=== PATIENT | male | born 2000 | race Caucasian/White ===

== ENCOUNTER 2019-08-02 16:26 | Emergency (ER) | payer MEDICAID, SELFPAY ==
[2019-08-02 16:26] VITALS: BP 122/74; PULSE 86; RESP 15; TEMP 36.6; O2SAT 99; BMI 23.6
--- NOTE | 2019-08-02 16:45 | ED.DCSUM_ITS ---
- ER Visit Summary Date of Service: 08/02/19 Chief Complaint: Paranoia, hallucinations, suicidal ideation History of Present Illness: The patient is a 19 M presenting with paranoid behavior, hallucinations, suicidal ideation. Patient's family states that this has been ongoing for months but worsened recently. He was at [facility] in March for similar complaints. At that time his symptoms were thought to be secondary to mushroom use. He denies drug use at this time. He continues to hear voices. He feels that everyone is out to get him. He went to work today and they told him he was early. He left the job. He feels like people are lying to him. Mom states that he has had violent outbursts. He states he is unable to sleep. He is tearful on arrival. He admits to suicidal ideation. Denies plan. No history of past suicide attempt. Physical Examination: Vitals are stable. Patient is afebrile. Alert no acute distress. HEENT exam is unremarkable. Neck is supple. Lungs are clear and equal bilaterally. Heart is regular rate and rhythm. Abdomen is soft nontender nondistended. Extremities are unremarkable. Skin is warm and dry. No focal neurologic deficit. Tearful, depressed affect Remainder of exam is unremarkable. Emergency Department Course and Treatment: CBC, chemistries unremarkable. Tox positive for THC, alcohol negative. Patient was seen by social work in the ED. [place] slip was completed. He will be transferred for psychiatric evaluation. Disposition: Transfer Impression: Suicidal ideation, auditory hallucinations, paranoid behavior This note was generated with [employer] dictation software. It may contain incorrect words, spelling, and punctuation that were not noted in review of the chart prior to signing ED Disposition - Plan for ED Patient: Referrals: Reinier Lundy MD [NON-STAFF] -
--- NOTE | 2019-08-02 16:48 | ED.RN ---
while in triage wound were noticed on left hand. when asked pt stated he punched and window. he was then asked if that was done in an attempt to harm himself. he stated no that he was trying to relieve stress. during triage he was asked if his level of stress was higher than normal he stated yes. he began to speak about how people at work were out to get him. lying to him and not giving him good directions. mother states that this has been an issue in the past. pt just started this new job. martha alvarez rn [id number]
[2019-08-02 17:11] LABS: Absolute Lymphocyte Count 2.18 X10^3/uL (0.83-4.51); Absolute Neutrophil Count 6.4 X10^3/uL (2.0-7.7); Basophil# 0.07 X10^3/uL; Basophil% 0.7 % (0-1); Eosinophil# 0.05 X10^3/uL; Eosinophils% 0.5 % (0-5); Hematocrit 45.3 % (40-54); Hemoglobin 16.3 g/dL (13.0-16.5); Lymphocyte # 2.18 X10^3/ul (4.0); Mean Corpuscular Hgb 29.3 pg (27.0-32.0); Mean Corpuscular Volume 81.3 fL (80-94); Mean Platelet Vol. 9.1 fl (6.2-12.0); Monocyte# 0.74 X10^3/uL; Monocyte% 7.8 % (0-10); NRBC Flagged by Analyzer 0 % (0-5); Neutrophil # 6.38 X10^3/uL (2.7-7.7); Neutrophil % 67.6 % (47-70); Platelet Count 351 K/mm3 (150-450); RBC Distribution Width CV 12.5 % (11.6-14.6); RBC Distribution Width SD 36.8 fl (35.1-43.9); Red Blood Count 5.57 M/mm3 (4.6-6.2); White Blood Count 9.5 K/mm3 (4.4-11.0)
[2019-08-02 17:22] LABS: Anion Gap 7 (5-15); BUN 17 mg/dL (7-18); BUN/Creat Ratio 15.2 RATIO (10-20); Calcium,Total 9.8 mg/dL (8.5-10.1); Chloride 106 mmol/L (98-107); Creatinine, Serum 1.12 mg/dL (0.70-1.30); EST Glomerular Filtration Rate 88 mL/min (>60); Est Glom Filt Rate - Afr Amer 106 mL/min (>60); Estimated Creatinine Clearance 97.54 ml/min; Glucose 80 mg/dL (74-106); Potassium 3.6 mmol/L (3.5-5.1); Sodium Level 140 mmol/L (136-145)
[2019-08-02 17:43] LABS: Alcohol, Blood (Medical)-Serum < 3.0 mg/dL
--- NOTE | 2019-08-02 17:52 | CM.ED ---
SOCIAL WORK INFORMANT: DR. ARAUJO REASON FOR REFERRAL: SUICIDAL IDEATION/MENTAL HEALTH CHIEF COMPLIANT: PATIENT PRESENTS TO THE EMERGENCY DEPARTMENT WITH PARENTS. PATIENT HAVING AUDITORY AND VISUAL HALLUCINATIONS. PATIENT ADMITS TO SUICIDAL IDEATION WITH NO PLAN. PARENTS REPORT PRIOR HOSPITALIZATION IN MARCH AFTER OVERDOSE ON MUSHROOMS AND METH AND STATE PATIENT HAS NOT BEEN THE SAME SINCE HOSPITALIZATION. MARITAL STATUS: SINGLE LIVING SITUATION: PARENTS REPORT PATIENT STAYS AT MOTHER OR FATHER'S HOUSE. SUPPORT/RESOURCES: PARENTS EDUCATION/EMPLOYMENT HISTORY: HIGH SCHOOL GRADUATE. PATIENT CURRENTLY EMPLOYED AT [employer]. PARENTS REPORT PATIENT STARTED JOB YESTERDAY. MENTAL HEALTH TREATMENT/HISTORY: ANXIETY-NOT TREATED. FATHER REPORTS AFTER HOSPITALIZATION IN MARCH PATIENT WAS STARTED ON PROZAC AND IT MADE HIM WORSE. I TOOK HIM OFF OF IT AFTER 4 DAYS. PATIENT STATES HAD NIGHT TERRORS AT A YOUNG AGE AND HAS BEEN HAVING NIGHTMARES RECENTLY. PATIENT WITH FAMILY HISTORY OF MENTAL HEALTH. PATIENT'S UNCLE ON MOTHER'S SIDE AND GRANDFATHER ON FATHER'S SIDE SUFFER FROM PARANOID SCHIZOPHRENIA. PATIENT DENIES ANY HISTORY OF PHYSICAL, EMOTIONAL OR SEXUAL ABUSE. SUBSTANCE ABUSE HISTORY: PATIENT WITH HISTORY OF METH, MUSHROOMS, AND MARIJUANA USE. PATIENT WAS HOSPITALIZED AFTER OVERDOSE ON MUSHROOMS AND METH IN MARCH 2019. PATIENT REPORTS OCCASIONAL MARIJUANA USE. MENTAL STATUS EXAM: ORIENTATION: PATIENT ALERT AND ORIENTED MEMORY: FAIR APPEARANCE/GENERAL BEHAVIOR: DISHEVELED, AGITATED MOOD/AFFECT: DEPRESSED, ANXIOUS, ANGRY, TEARFUL, SCARED COMMUNICATION PATTERN: RESPONDS TO QUESTIONS THOUGHT PROCESS: HALLUCINATIONS A/V, DELUSIONS, PARANOID JUDGEMENT: POOR RISK TO SELF/OTHERS: SUICIDAL: PATIENT ADMITS TO SUICIDAL IDEATION SOMETIMES. PATIENT DENIES PLAN AT THIS TIME. PARENTS REPORT NO PREVIOUS HISTORY. HOMICIDAL: PATIENT DENIES ANY HOMICIDAL IDEATION. VIOLENCE: PARENTS REPORT PATIENT HAS BEEN HAVING VIOLENT OUTBURSTS. PATIENT STATES I WOULD NEVER HURT ANYONE. MOTHER STATES PATIENT WILL PUNCH RAMAN OR THROW THINGS AT THE WALL. ASSESSMENT: MET WITH PATIENT AND PARENTS IN ROOM. PATIENT GAVE PERMISSION FOR THIS WORKER TO SPEAK OPENLY WITH PARENTS PRESENT. MOTHER AND FATHER CONCERNED PATIENT MAY BE PARANOID SCHIZOPHRENIC DUE TO FAMILY HISTORY. FATHER AND MOTHER STATE PATIENT OVERDOSED ON MUSHROOMS AND METH OVER THE SUMMER AND HAS NOT BEEN THE SAME SINCE. PATIENT WITH PARANOID DELUSIONS, AUDITORY AND VISUAL HALLUCINATIONS, NIGHTMARES, AND VIOLENT OUTBURSTS. PATIENT TEARFUL THROUGHOUT ASSESSMENT STATING I JUST WANT THEM TO STOP WHEN TALKING ABOUT THE VOICES. PATIENT FEELS EVERYONE IS OUT TO GET HIM. PATIENT ADMITS TO SUICIDAL IDEATION. PATIENT DENIES PLAN. COLLABORATION WITH DR. ARAUJO. RECOMMENDING INPATIENT PSYCH HOSPITALIZATION. PATIENT WITH 1:[address] PARENTS REMAIN AT BEDSIDE. PATIENT AND FAMILY AWARE OF REFERRAL FOR PLACEMENT. INTERVENTIONS: SOCIAL SERVICE ASSESSMENT SUICIDE RISK ASSESSMENT COMPLETED REFERRAL FOR INPATIENT PSYCH HOSPITALIZATION Rajiv BURK MSW, POULTICE MACHINE OPERATOR.
[2019-08-02] MEDS: LORazepam 1 MG Tablet PO (17:59)
[2019-08-02 18:00] VITALS: RESP 16
--- NOTE | 2019-08-02 18:41 | CM.ED ---
SOCIAL WORK REFERRAL CALLED AND FAXED TO MARKELL AT [facility]. MARKELL TO REVIEW REFERRAL AND GET BACK TO THIS WORKER. WILL FAX TOX SCREEN ONCE RECEIVED. Rajiv BURK MSW, VICE PRESIDENT AND PORTFOLIO MANAGER.
[2019-08-02 19:11] LABS: Amphetamine Urine VISTA NEGATIVE (<1000 ng/mL); Barbiturate Urine VISTA NEGATIVE (< 200 ng/mL); Benzodiazepine Urine VISTA NEGATIVE (< 200 ng/mL); Cocaine Urine VISTA NEGATIVE (< 300 ng/mL); Ecstacy Urine VISTA NEGATIVE (< 500 ng/mL); Methadone Urine VISTA NEGATIVE (< 300 ng/mL); PCP Urine VISTA NEGATIVE (< 25 ng/mL); THC Urine VISTA POSITIVE (< 50 ng/mL); Vista UDS pH Range 6
[2019-08-02 20:15] VITALS: BP 102/72; PULSE 90; RESP 16; O2SAT 97
--- NOTE | 2019-08-02 20:25 | CM.ED ---
SOCIAL WORK CALL TO ABHIJE[facility] POON TO CHECK ON STATUS OF REFERRAL. SPOKE WITH BOO, WHO REPORTS IS REVIEWING REFERRAL. WILL GET BACK TO THIS WORKER. Rajiv BURK, CLINICAL INVESTIGATOR, NURSING RESIDENT.
--- NOTE | 2019-08-02 21:40 | CM.ED ---
SOCIAL WORK CALL TO ABHIJE[facility] POON TO DISCUSS REFERRAL. WORKER STATES DEALING WITH PATIENTS AND HAVE 8 OTHER REFERRALS. WILL GET BACK TO THIS WORKER ONCE REVIEWED. STAFF DENZEL. Rajiv BURK, MANUFACTURING ENGINEER, ALL SOURCE ANALYST
--- NOTE | 2019-08-02 22:01 | CM.ED ---
SOCIAL WORK REFERRAL CALLED AND FAXED TO JUSTINE AT [facility]. JUSTINE TO REVIEW REFERRAL AND GET BACK TO THIS WORKER. Rajiv BURK, NAPRAPATH, [employer] FIELD TECHNICIAN.
--- NOTE | 2019-08-02 22:59 | CM.ED ---
SOCIAL WORK CALL FROM JUSTINE WITH [facility]. DR. CHAPMAN HAS ACCEPTED PATIENT TO THE [facility]. NURSE TO CALL REPORT TO [facility]. COPY OF PINK SLIP FAXED PER REQUEST. CUSTODIAL OFFICER, [place] TO SET UP TRANSPORT ONCE REPORT CALLED. STAFF UPDATED. Rajiv BURK MSW, GREEN CHAIN OFFBEARER.
[2019-08-02 23:12] VITALS: RESP 14
--- NOTE | 2019-08-02 23:12 | ED.RN ---
THIS NURSE CALLED KATE, PT'S MOTHER, AT [phone] AND INFORMED HER THAT PT WAS ACCEPTED AT [facility] FOR PSYCHIATRY. WILL INFORM MOTHER IF PT IS TRANSPORTED THIS EVENING.
--- NOTE | 2019-08-02 23:22 | ED.RN ---
ATTEMPTED TO CALL REPORT TO [facility] AT , CALL WAS TRANSFERRED TO UNIT [facility] AND NO ANSWER.
[2019-08-03 01:28] VITALS: RESP 14
[2019-08-03 04:11] VITALS: BP 113/58; PULSE 63; RESP 14; TEMP 36.8; O2SAT 99
--- NOTE | 2019-08-03 04:27 | ED.RN ---
Dr. Agudelo notified of lactic acid 24.1
[2019-08-03] MEDS: Ibuprofen 200 MG Tablet 400 MG PO (04:34)
[2019-08-03 06:00] VITALS: RESP 16
--- NOTE | 2019-08-03 06:22 | ED.RN ---
attempted to call report to [facility]. no answer.
== END 2019-08-03 07:48 ==
PROVIDERS: Emergency Provider Emergency Medicine
DX: F22 Delusional disorders (principal); R45.851 Suicidal ideations; Z72.0 Tobacco use
CPT/HCPCS: 36415; 80048; 80307; 80320; 85025; 99285; G0480

== ENCOUNTER 2019-08-09 14:29 | Emergency (ER) | payer MEDICAID, SELFPAY ==
[2019-08-09 14:30] VITALS: BP 139/89; PULSE 76; RESP 16; TEMP 36.6; O2SAT 100; BMI 24.7
--- NOTE | 2019-08-09 14:37 | CM.ED ---
SOCIAL WORK STEPHAN FROM [facility] HERE. PATIENT SENT IN BY [facility] AND WILL REQUIRE INPATIENT HOSPITALIZATION. [facility] TO COMPLETE PLACEMENT. Rajiv BURK, FITTING ROOM CHECKER, FELT MACHINE MECHANIC.
[2019-08-09 15:43] LABS: Absolute Lymphocyte Count 1.85 X10^3/uL (0.83-4.51); Absolute Neutrophil Count 7.2 X10^3/uL (2.0-7.7); Basophil# 0.05 X10^3/uL; Basophil% 0.5 % (0-1); Eosinophil# 0.13 X10^3/uL; Eosinophils% 1.3 % (0-5); Hematocrit 41.5 % (40-54); Hemoglobin 14.6 g/dL (13.0-16.5); Lymphocyte # 1.85 X10^3/ul (4.0); Lymphocyte % 18.6 % (19-41); Mean Corp Hgb Conc 35.2 g/dL (32-36); Mean Corpuscular Hgb 29.2 pg (27.0-32.0); Mean Platelet Vol. 9.1 fl (6.2-12.0); NRBC Flagged by Analyzer 0 % (0-5); Neutrophil # 7.17 X10^3/uL (2.7-7.7); Neutrophil % 72.3 % (47-70); Platelet Count 299 K/mm3 (150-450); RBC Distribution Width CV 12.8 % (11.6-14.6); RBC Distribution Width SD 38.3 fl (35.1-43.9); White Blood Count 9.9 K/mm3 (4.4-11.0)
--- NOTE | 2019-08-09 15:43 | ED.DCSUM_ITS ---
History of Present Illness Chief Complaint: Mental Health Narrative: Patient presenting for evaluation for psychiatric work-up. Patient was recently admitted and discharged from [facility] for psychiatry due to suicidal ideation. He was started on Abilify and was discharged 5 days ago. Patient apparently was following up today with the in town psychiatrist, and was informing them that he is still having persistent suicidal ideations. He states that he would want to , and plans to jump out of his bedroom window headfirst. He states that he is hearing voices that consist of women screaming. He reports that he feels hopeless and feels that he will never get better. He divulges all of this to the counselor, but actually does not divulge any of this to me. He denies any somatic complaints at this time. Past Medical History - Allergies and Home Meds Allergies/Adverse Reactions: Allergies No Known Allergies Allergy (Verified 08/09/19 14:35) Primary Care Physician: Care Physician,No Primary [Primary Care Provider] - Past Medical History: - - Prior suicidal ideation Smoking Status: Current every day smoker Review of Systems All systems negative except as indicated General: Denies: Chills, Fever, Sweats Eyes: Denies: Visual changes - bilaterally, Diplopia ENT: Denies: Rhinorrhea, Sore throat Cardiovascular: Denies: Chest pain, Palpitations Respiratory: Denies: Dyspnea, Cough, Dyspnea on exertion Gastrointestinal: Denies: Abdominal pain, Nausea, Vomiting, Diarrhea, Melena, Hematochezia Genitourinary: Denies: Dysuria, Hematuria, Frequency Musculoskeletal: Denies: Back pain, Extremity Pain Skin: Denies: Rash, Wounds Neurological: Denies: Headache, Weakness, Numbness Psych: Reports: Depression, Suicidal thoughts, Suicidal ideations Endocrine: Denies: Polyuria, Polydipsia Hematologic: Denies: Easy bruising, Easy bleeding Allergy: Denies: Swelling of the mouth Physical Exam Vital Signs/Narrative: Vital Signs Temp Pulse Resp BP Pulse Ox 08/09/19 14:30 97.8 F 76 16 139/89 H 100 Inital Vital Signs reviewed: Yes General: Well nourished, Well developed Head: Normocephalic, Atraumatic Eyes: Perrl, EOMI ENT: Moist mucous membranes, No rhinorrhea Neck: Supple, Nontender Cardiovascular: Regular rate, Regular rhythm, No murmurs Respiratory: No distress, CTA bilaterally, Chest nontender Abdomen: Soft, Nontender, Nondistended, Normal bowel sounds Back: Nontender, Normal Inspection Extremities: Nontender, No Edema Skin: Normal color, No rash Neurological: Alert, Oriented x3, Cranial nerves II-XII grossly intact, Normal Strength, Normal Sensation Psych: Restricted Affect, Poverty of Speech Diagnostic/Tx/Re-eval Patient presented for psych eval. Screening tests were negative he was medically cleared by myself for evaluation by mental health. Mental health did decide that they felt patient would benefit from placement. Patient was accepted in transfer to [facility] Disposition: Transfer ED Disposition - Plan for ED Patient: Disposition: Psychiatric Hospital or Unit Diagnosis: Suicidal ideation
[2019-08-09 15:51] LABS: Anion Gap 6 (5-15); BUN 13 mg/dL (7-18); BUN/Creat Ratio 12.9 RATIO (10-20); Calcium,Total 9.5 mg/dL (8.5-10.1); Chloride 107 mmol/L (98-107); Creatinine, Serum 1.01 mg/dL (0.70-1.30); EST Glomerular Filtration Rate 99 mL/min (>60); Est Glom Filt Rate - Afr Amer 120 mL/min (>60); Glucose 91 mg/dL (74-106); Potassium 3.6 mmol/L (3.5-5.1); Sodium Level 141 mmol/L (136-145)
[2019-08-09 16:07] LABS: Alcohol, Blood (Medical)-Serum < 3.0 mg/dL
[2019-08-09 17:00] VITALS: RESP 14
[2019-08-09 17:12] LABS: Amphetamine Urine VISTA NEGATIVE (<1000 ng/mL); Barbiturate Urine VISTA NEGATIVE (< 200 ng/mL); Benzodiazepine Urine VISTA NEGATIVE (< 200 ng/mL); Cocaine Urine VISTA NEGATIVE (< 300 ng/mL); Ecstacy Urine VISTA NEGATIVE (< 500 ng/mL); Methadone Urine VISTA NEGATIVE (< 300 ng/mL); PCP Urine VISTA NEGATIVE (< 25 ng/mL); THC Urine VISTA NEGATIVE (< 50 ng/mL); Vista UDS pH Range 6
[2019-08-09 19:57] VITALS: RESP 16
[2019-08-09 21:00] VITALS: BP 112/60; PULSE 76; RESP 16; O2SAT 96
[2019-08-09 21:29] VITALS: BP 112/60; PULSE 76; RESP 16; O2SAT 96
== END 2019-08-09 21:36 ==
PROVIDERS: Emergency Provider Emergency Medicine
DX: R45.851 Suicidal ideations (principal); F17.200 Nicotine dependence, unspecified, uncomplicated
CPT/HCPCS: 80048; 80307; 80320; 85025; 99284; G0480

== ENCOUNTER 2020-07-07 15:42 | Emergency (ER) | payer MEDICAID, SELFPAY ==
[2020-07-07 15:43] VITALS: BP 132/68; PULSE 115; RESP 18; TEMP 36.3; O2SAT 97; BMI 27.3
--- NOTE | 2020-07-07 15:52 | ED.RN ---
TINGLING IN HANDS, SHAKING
--- NOTE | 2020-07-07 15:59 | EKG12_ITS ---
Test Reason : ALLERGIC REACTION Blood Pressure : / mmHG Vent. Rate : 085 BPM Atrial Rate : 085 BPM P-R Int : 116 ms QRS Dur : 080 ms QT Int : 364 ms P-R-T Axes : 066 063 045 degrees QTc Int : 433 ms Normal sinus rhythm Normal ECG Confirmed by DELLA JONES, NATALIE ([id number]), editorial specialist COLEMAN FLORENTINO ([id number]) on 07/10/2020 10:23:07 AM Referred By: Confirmed By:NATALIE HULL MD
--- NOTE | 2020-07-07 16:04 | ED.VISSUMM ---
- ER Visit Summary Date of Service: 07/07/20 Chief Complaint: Tingling bilateral hands History of Present Illness: The patient is a 20 M presenting with tingling to both his hands which started yesterday. Patient states that he does not feel right. He was diagnosed with schizophrenia in October. At that time he was taking Invega, doxepin, Lexapro. Mom states he stopped taking his medications after approximately 1 month because he felt improved. At that time Covid was starting and he did not follow-up. She states over the past month he has agreed to go back to the psychiatrist and was restarted on his medications. He had Invega injection x2 since June 25. He has restarted doxepin and Lexapro which he previously was taking. He states he has tingling in both hands. He feels anxious and paranoid. He has auditory hallucinations. This morning he thought that his tongue might be swollen but this has resolved. He complains of lower abdominal pain. He denies nausea or vomiting. He has diarrhea. Denies fever or cough. Denies other complaints. Physical Examination: Vitals are stable. Patient is afebrile. Alert no acute distress. HEENT exam is unremarkable. No tongue swelling. No pharyngeal edema Neck is supple. No meningismus Lungs are clear and equal bilaterally. Heart is regular rate and tachycardic Abdomen is soft nontender nondistended. No guarding or rebound Extremities are unremarkable. Skin is warm and dry. No rash No focal neurologic deficit. Anxious, paranoid Remainder of exam is unremarkable. Emergency Department Course and Treatment: EKG is sinus rhythm rate of 85 with no acute ischemic changes. CBC, chemistries unremarkable. Urinalysis unremarkable. Tox positive for cannabinoids. Alcohol negative. Covid is pending. Patient was given Ativan and Tylenol. Symptoms have improved. Discussed with the counseling center who evaluated the patient in the ED. he is not suicidal or homicidal. He feels safe at home. Mom is in agreement. Counseling center and family are agreeable with discharge home and close follow-up with his psychiatrist. Advised signs and symptoms for which to return to the ED. Disposition: Discharge home Impression: Anxiety, history of schizophrenia This note was generated with [employer] software. It may contain incorrect words, spelling, and punctuation that were not noted in review of the chart prior to signing ED Disposition - Plan for ED Patient: Disposition: Home or Assisted Living Instructions: ED Schizophrenia General Referrals: Counseling,Center [GROUP OF PHYSICIANS] -
[2020-07-07] MEDS: LORazepam 1 MG Tablet PO (16:14)
[2020-07-07] MEDS: Acetaminophen 500 MG Tablet 1000 MG PO (16:15)
[2020-07-07 16:16] LABS: Bacteria 0 SEEN /hpf (None Seen); Mucous, Urine 0 SEEN /hpf (<or=2+); Red Blood Cells-Urine 0 SEEN /hpf (0-5); Squamous Epithelial Cells - UA 0 SEEN /hpf (0-5)
[2020-07-07 16:19] LABS: Color, Urine Yellow (Yellow); Glucose, Dipstick Normal (Normal); Ketone-Dipstick Negative (Negative); Leukocyte Esterase-Dipstick Negative /ul (Negative); Nitrite-Dipstick Negative (Negative); Occult Blood-Urine Negative /ul (Negative); Protein-Dipstick Negative (Negative); Urine Bilirubin Dipstick Negative (Negative); Urine Clarity Clear (Clear); Urine Urobilinogen Normal (Normal)
[2020-07-07 16:26] LABS: Absolute Lymphocyte Count 1.85 X10^3/uL (0.83-4.51); Absolute Neutrophil Count 5.2 X10^3/uL (2.0-7.7); Basophil# 0.04 X10^3/uL; Basophil% 0.5 % (0-1); Eosinophil# 0.16 X10^3/uL; Hematocrit 42.9 % (40-54); Lymphocyte # 1.85 X10^3/ul (4.0); Lymphocyte % 23.6 % (19-41); Mean Corpuscular Hgb 28.9 pg (27.0-32.0); Mean Corpuscular Volume 82.7 fL (80-94); Mean Platelet Vol. 9.1 fl (6.2-12.0); Monocyte# 0.54 X10^3/uL; Monocyte% 6.9 % (0-10); NRBC Flagged by Analyzer 0 % (0-5); Neutrophil # 5.22 X10^3/uL (2.7-7.7); Neutrophil % 66.5 % (47-70); Platelet Count 329 K/mm3 (150-450); RBC Distribution Width CV 12.5 % (11.6-14.6); RBC Distribution Width SD 37.5 fl (35.1-43.9); Red Blood Count 5.19 M/mm3 (4.6-6.2); White Blood Count 7.9 K/mm3 (4.4-11.0)
[2020-07-07 16:29] LABS: White Blood Cells 0-5 SEEN /hpf (0-5)
[2020-07-07 16:45] VITALS: RESP 18
[2020-07-07 16:48] LABS: ALB/GLOB Ratio 1.2 RATIO (0.9-2.4); AST(SGOT) 22 U/L (15-37); Alanine Aminotransfer ALT/SGPT 23 U/L (16-61); Albumin, Serum 4.3 g/dL (3.2-5.0); Alkaline Phosphatase 95 U/L (45-117); Anion Gap 6 (5-15); BUN 17 mg/dL (7-18); BUN/Creat Ratio 13.6 RATIO (10-20); Calcium,Total 9.3 mg/dL (8.5-10.1); Chloride 109 mmol/L (98-107); Creatinine, Serum 1.25 mg/dL (0.70-1.30); EST Glomerular Filtration Rate 77 mL/min (>60); Est Glom Filt Rate - Afr Amer 93 mL/min (>60); Estimated Creatinine Clearance 89.68 ml/min; Globulin 3.6 g/dL (2.2-4.2); Glucose 97 mg/dL (74-106); Lipase 49 U/L (73-393); Potassium 3.5 mmol/L (3.5-5.1); Protein, Total 7.9 g/dL (6.4-8.2); Sodium Level 141 mmol/L (136-145)
[2020-07-07 16:50] LABS: Amphetamine Urine VISTA NEGATIVE (<1000 ng/mL); Barbiturate Urine VISTA NEGATIVE (< 200 ng/mL); Benzodiazepine Urine VISTA NEGATIVE (< 200 ng/mL); Cocaine Urine VISTA NEGATIVE (< 300 ng/mL); Ecstacy Urine VISTA NEGATIVE (< 500 ng/mL); Methadone Urine VISTA NEGATIVE (< 300 ng/mL); PCP Urine VISTA NEGATIVE (< 25 ng/mL); THC Urine VISTA POSITIVE (< 50 ng/mL); Vista UDS pH Range 6
[2020-07-07 17:08] VITALS: RESP 18
--- NOTE | 2020-07-07 18:02 | ED.DEP ---
ED Disposition - Plan for ED Patient: Instructions: ED Schizophrenia General Referrals: Counseling,Center [GROUP OF PHYSICIANS] -
== END 2020-07-07 18:20 | disposition home or self-care (01) ==
PROVIDERS: Emergency Provider Emergency Medicine
DX: F41.9 Anxiety disorder, unspecified (principal); F20.9 Schizophrenia, unspecified; Z79.899 Other long term (current) drug therapy; Z72.0 Tobacco use
CPT/HCPCS: 80053; 80307; 80320; 81001; 83690; 85025; 87635; 93005; 96360; 99283; J7030; A4216; G0480; U0002

== ENCOUNTER 2021-10-05 12:26 | Emergency (ER) | payer MEDICAID, SELFPAY ==
[2021-10-05 12:27] VITALS: BP 131/97; PULSE 93; RESP 16; TEMP 36.6; O2SAT 100; BMI 29.0
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
[2021-10-05 13:06] LABS: Absolute Lymphocyte Count 1.91 X10^3/uL (0.83-4.51); Absolute Neutrophil Count 2.7 X10^3/uL (2.0-7.7); Basophil# 0.05 X10^3/uL; Basophil% 0.9 % (0-1); Eosinophil# 0.21 X10^3/uL; Eosinophils% 3.9 % (0-5); Hematocrit 45.6 % (40-54); Hemoglobin 15.2 g/dL (13.0-16.5); Lymphocyte # 1.91 X10^3/ul (0.83-4.51); Lymphocyte % 35.4 % (19-41); Mean Corp Hgb Conc 33.3 g/dL (32-36); Mean Platelet Vol. 9.4 fl (6.2-12.0); Monocyte# 0.55 X10^3/uL; Monocyte% 10.2 % (0-10); NRBC Flagged by Analyzer 0 % (0-5); Neutrophil # 2.67 X10^3/uL (2.7-7.7); Neutrophil % 49.4 % (47-70); Platelet Count 345 K/mm3 (150-450); RBC Distribution Width CV 14.4 % (11.6-14.6); RBC Distribution Width SD 43.4 fl (35.1-43.9); Red Blood Count 5.43 M/mm3 (4.6-6.2); White Blood Count 5.4 K/mm3 (4.4-11.0)
[2021-10-05 13:19] LABS: Anion Gap 5 (5-15); BUN 14 mg/dL (7-18); BUN/Creat Ratio 13.1 RATIO (10-20); Chloride 109 mmol/L (98-107); Creatinine, Serum 1.07 mg/dL (0.70-1.30); EST Glomerular Filtration Rate 91 mL/min (>60); Est Glom Filt Rate - Afr Amer 110 mL/min (>60); Estimated Creatinine Clearance 96.89 ml/min; Glucose 92 mg/dL (74-106); Potassium 3.3 mmol/L (3.5-5.1); Sodium Level 142 mmol/L (136-145)
[2021-10-05 13:51] LABS: Alcohol, Blood (Medical)-Serum < 3.0 mg/dL
[2021-10-05 15:57] LABS: Vista UDS pH Range 7
[2021-10-05 16:09] LABS: Amphetamine Urine VISTA NEGATIVE (<1000 ng/mL); Barbiturate Urine VISTA NEGATIVE (< 200 ng/mL); Benzodiazepine Urine VISTA NEGATIVE (< 200 ng/mL); Cocaine Urine VISTA NEGATIVE (< 300 ng/mL); Ecstacy Urine VISTA NEGATIVE (< 500 ng/mL); Methadone Urine VISTA NEGATIVE (< 300 ng/mL); PCP Urine VISTA NEGATIVE (< 25 ng/mL); THC Urine VISTA POSITIVE (< 50 ng/mL)
--- NOTE | 2021-10-05 16:30 | NURSING ---
CALLED [facility], ANSWERING SERVICE. LEFT MESSAGE PATIENT IS MEDICALLY CLEARED
--- NOTE | 2021-10-05 16:45 | NURSING ---
JUAN, [facility], CALLED. FAXED CHART TO [phone]
[2021-10-05 17:10] VITALS: BP 126/83; PULSE 62; RESP 16; TEMP 36.6; O2SAT 100
--- NOTE | 2021-10-05 17:12 | NURSING ---
REFAXED CHART TO [phone]
--- NOTE | 2021-10-05 17:47 | ED.RN ---
called for meal tray for pt
--- NOTE | 2021-10-05 18:04 | NURSING ---
CALLED [facility], PER DR SHIELDS. LET SERVICE KNOW THAT [facility] IS NOT AN OPTION FOR TRANSFER
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
--- NOTE | 2021-10-05 20:52 | EKG12_ITS ---
Test Reason : Blood Pressure : / mmHG Vent. Rate : 053 BPM Atrial Rate : 053 BPM P-R Int : 122 ms QRS Dur : 084 ms QT Int : 420 ms P-R-T Axes : 028 056 041 degrees QTc Int : 394 ms Sinus bradycardia Otherwise normal ECG Confirmed by NATALIE HULL MD ([id number]), editor producer COLEMAN FLORENTINO ([id number]) on 10/07/2021 9:39:43 AM Referred By: ALENA Confirmed By:NATALIE HULL MD
[2021-10-05 21:08] VITALS: BP 128/88; PULSE 58; RESP 16; TEMP 37; O2SAT 100
[2021-10-05 21:16] LABS: CPK Total, Creatine Kinase 125 U/L (39-308)
--- NOTE | 2021-10-05 21:44 | CM.ED ---
EDWIN Note SW received call from Camille at [facility]. They need EKG and CK level. EDWIN faxed the requested EKg and CK level to [facility]. Camille from [facility] called. Dr. Palomares will accept patient. She requested covid screen and pink slip. EDWIN faxed covid screen and pink slip to [facility]. EDWIN called [facility] and [facility] and advised that placement is not needed for patient anymore as placement has been secured. Camille from [facility] called back and patient is going to [facility] [place] Room [address] with Dr. Palomares accepting. RN to call report. secretary to the vice president to call for transport. EDWIN updated patient's mother, Anthony and provided her with name of [facility] and the room number. EDWIN texted Teresa at Crisis with update that patient accepted at [facility]. EDWIN spoke to community health nurse supervisor. Transport in 4 hours. EDWIN spoke to patient and advised him of his acceptance to [facility] and transport scheduled time. Patient voiced questions about his belongings and social work job titles advised that the belongings will go with patient. Plan: [facility] Bernadette GOMEZ
[2021-10-06 01:14] VITALS: RESP 16
== END 2021-10-06 01:43 ==
PROVIDERS: Emergency Provider Emergency Medicine; Visit Provider Emergency Medicine
DX: R45.850 Homicidal ideations (principal); F20.9 Schizophrenia, unspecified; F17.210 Nicotine dependence, cigarettes, uncomplicated
CPT/HCPCS: 80048; 80307; 82077; 82550; 85025; 87426; 93005; 99285

== ENCOUNTER → 2022-05-29 | Outpatient (CLI) | payer MEDICAID, SELFPAY ==
--- NOTE | 2022-05-29 08:46 | EKG12_ITS ---
Test Reason : MEDS Blood Pressure : / mmHG Vent. Rate : 065 BPM Atrial Rate : 065 BPM P-R Int : 110 ms QRS Dur : 072 ms QT Int : 370 ms P-R-T Axes : 071 072 068 degrees QTc Int : 384 ms Sinus rhythm with sinus arrhythmia with short SD Otherwise normal ECG Confirmed by DELLA JONES, NATALIE ([id number]), film or videotape editor COLEMAN FLORENTINO ([id number]) on 05/30/2022 10:10:43 AM Referred By: GUSTAVO CALVILLO Confirmed By:NATALIE HULL MD
== END | disposition home or self-care (01) ==
LOC: PSN 08:44
DX: R94.31 Abnormal electrocardiogram [ECG] [EKG] (principal); Z79.899 Other long term (current) drug therapy
CPT/HCPCS: 93005

== ENCOUNTER 2022-08-31 21:49 | Emergency (ER) | payer MEDICAID, SELFPAY ==
[2022-08-31 21:51] VITALS: BP 115/94; PULSE 76; RESP 16; RESP 18; TEMP 36.2; O2SAT 100; BMI 26.2
--- NOTE | 2022-08-31 22:15 | EX.ED.VIS.PS ---
HPI HPI - Psych History of Present Illness Chief Complaint: Mental Health Informant: patient Narrative Narrative: 22-year-old male presenting with paranoid thoughts. Patient is concerned that someone tapped his phone. He has been hearing things. He states he came to the ED because he did not want to harm anyone else. He is having homicidal thoughts but wants help for this. Denies suicidal ideation. Per nursing note he was walking around yesterday growling. Patient states he has been told that he is Satan but he is not. No recent medication changes. Admits to occasional alcohol use. Denies drug use. Prior similar symptoms: Yes PFSH PFSH Medical History Methamphetamine abuse Schizophrenia Home Medications perphenazine 8 mg tablet 8 mg PO QHS 08/31/22 [History Last Taken 08/30/22] Allergy/AdvReac Type Severity Reaction Status Date / Time No Known Allergies Allergy Verified 07/07/20 15:42 Social History Smoking Status: Current every day smoker tobacco type: cigarettes ROS ROS ED Constitutional Constitutional ED: Denies fever(s) Eyes Eyes: Denies change in vision ENT ENT ED: Denies rhinorrhea or sore throat Cardiovascular Cardiovascular: Denies chest pain or palpitations Respiratory/Chest Respiratory/Chest: Denies cough or dyspnea Gastrointestinal Gastrointestinal: Denies abdominal pain, diarrhea, nausea or vomiting Genitourinary Genitourinary ED: Denies dysuria Musculoskeletal Musculoskeletal: Denies myalgias Integumentary Denies rash Neurologic Neurologic: Denies headache(s) Psychiatric Psychiatric: Reports other Details: Homicidal ideation, paranoia ; Denies suicidal thoughts EXAM Physical Exam Const Vital Signs: 08/31/22 21:51 08/31/22 21:51 Temperature 97.2 F L 97.2 F L Temperature Source Temporal Temporal Pulse Rate 76 76 Respiratory Rate 16 18 Blood Pressure 115/94 H 115/94 H Blood Pressure Mean 101 101 Pulse Ox 100 100 Oxygen Delivery Method Room Air Room Air Positive well nourished and well developed General Appearance ED: well developed HEENT Reports normocephalic and head/scalp atraumatic Eyes PERRL and EOMs intact bilaterally Neck supple General: Negative for tenderness Chest Wall inspection of chest normal Resp normal respiratory effort and clear to auscultation bilaterally Cardio regular rate and regular rhythm GI non-tender and non-distended Palpation: soft; Negative for guarding or rebound tenderness present Extremity normal to inspection Neuro oriented x3 Sensorium / Orientation: alert Motor Exam: strength 5/5 throughout Psych mental status grossly normal Attitude: paranoid Activity / Motor Behavior: disorganized and avoids eye contact Thought Content: No suicidality and homicidality MDM MDM MDM Narrative Medical decision making narrative: CBC, chemistries unremarkable. Alcohol is negative. Tox screen positive for cannabinoids. COVID is negative. [place] slip was completed. Will discussed with counseling center for evaluation. Disposition pending counseling center evaluation. Lab Data Attestation: I reviewed the patient's lab results. Labs: Laboratory Results - last 24 hr 08/31/22 08/31/22 08/31/22 22:25 22:25 22:25 WBC 9.7 RBC 5.35 Hgb 15.5 Hct 44.3 MCV 82.8 MCH 29.0 MCHC 35.0 RDW Std Deviation 38.4 RDW Coeff of Davon 12.9 Plt Count 378 MPV 9.1 Immature Gran % (Auto) 0.200 Neut % (Auto) 57.6 Lymph % (Auto) 30.4 [place] % (Auto) 8.5 Eos % (Auto) 2.8 Baso % (Auto) 0.5 Absolute Neuts (auto) 5.6 Absolute Lymphs (auto) 2.93 Nucleated RBC % 0 Sodium 141 Potassium 3.3 L Chloride 106 Carbon Dioxide 28.0 Anion Gap 7 BUN 17 Creatinine 1.30 Estim Creat Clear Calc 81.92 Est GFR (MDRD) Af Amer 87 Est GFR (MDRD) Non-Af 72 BUN/Creatinine Ratio 13.1 Glucose 85 Calcium 9.5 Urine Opiates Screen Urine Methadone Screen Ur Barbiturates Screen Ur Phencyclidine Scrn Ur Amphetamines Screen MDMA (Ecstasy) Screen U Benzodiazepines Scrn Urine Cocaine Screen U Cannabinoids Screen Ur Drug Screen Comment Ethyl Alcohol < 3.0 08/31/22 22:25 WBC RBC Hgb Hct MCV MCH MCHC RDW Std Deviation RDW Coeff of Davon Plt Count MPV Immature Gran % (Auto) Neut % (Auto) Lymph % (Auto) [place] % (Auto) Eos % (Auto) Baso % (Auto) Absolute Neuts (auto) Absolute Lymphs (auto) Nucleated RBC % Sodium Potassium Chloride Carbon Dioxide Anion Gap BUN Creatinine Estim Creat Clear Calc Est GFR (MDRD) Af Amer Est GFR (MDRD) Non-Af BUN/Creatinine Ratio Glucose Calcium Urine Opiates Screen NEGATIVE Urine Methadone Screen NEGATIVE Ur Barbiturates Screen NEGATIVE Ur Phencyclidine Scrn NEGATIVE Ur Amphetamines Screen NEGATIVE MDMA (Ecstasy) Screen NEGATIVE U Benzodiazepines Scrn NEGATIVE Urine Cocaine Screen NEGATIVE U Cannabinoids Screen POSITIVE H Ur Drug Screen Comment Ethyl Alcohol Discharge Plan Triage Chief Complaint: Mental Health ED Provider: Agata Camara Dx/Rx/DC Orders Clinical Impression: Paranoia, Homicidal ideation Prescriptions: No Action perphenazine 8 mg Tablet 8 mg PO QHS Primary Care Provider: Care Physician,No Primary Referrals: Care Physician,No Primary [Primary Care Provider] -
[2022-08-31 22:37] LABS: Absolute Lymphocyte Count 2.93 X10^3/uL (0.83-4.51); Absolute Neutrophil Count 5.6 X10^3/uL (2.0-7.7); Basophil# 0.05 X10^3/uL; Basophil% 0.5 % (0-1); Eosinophil# 0.27 X10^3/uL; Eosinophils% 2.8 % (0-5); Hematocrit 44.3 % (40-54); Hemoglobin 15.5 g/dL (13.0-16.5); Lymphocyte # 2.93 X10^3/ul (0.83-4.51); Lymphocyte % 30.4 % (19-41); Mean Corpuscular Volume 82.8 fL (80-94); Mean Platelet Vol. 9.1 fl (6.2-12.0); Monocyte# 0.82 X10^3/uL; Monocyte% 8.5 % (0-10); NRBC Flagged by Analyzer 0 % (0-5); Neutrophil # 5.56 X10^3/uL (2.7-7.7); Neutrophil % 57.6 % (47-70); Platelet Count 378 K/mm3 (150-450); RBC Distribution Width CV 12.9 % (11.6-14.6); RBC Distribution Width SD 38.4 fl (35.1-43.9); Red Blood Count 5.35 M/mm3 (4.6-6.2); White Blood Count 9.7 K/mm3 (4.4-11.0)
[2022-08-31 22:45] LABS: Vista UDS pH Range 6
[2022-08-31 22:54] LABS: Alcohol, Blood (Medical)-Serum < 3.0 mg/dL
[2022-08-31 22:55] LABS: Anion Gap 7 (5-15); BUN 17 mg/dL (7-18); BUN/Creat Ratio 13.1 RATIO (10-20); Calcium,Total 9.5 mg/dL (8.5-10.1); Chloride 106 mmol/L (98-107); EST Glomerular Filtration Rate 72 mL/min (>60); Est Glom Filt Rate - Afr Amer 87 mL/min (>60); Estimated Creatinine Clearance 81.92 ml/min; Glucose 85 mg/dL (74-106); Potassium 3.3 mmol/L (3.5-5.1); Sodium Level 141 mmol/L (136-145)
[2022-08-31 22:58] LABS: Amphetamine Urine VISTA NEGATIVE (<1000 ng/mL); Barbiturate Urine VISTA NEGATIVE (< 200 ng/mL); Benzodiazepine Urine VISTA NEGATIVE (< 200 ng/mL); Cocaine Urine VISTA NEGATIVE (< 300 ng/mL); Ecstacy Urine VISTA NEGATIVE (< 500 ng/mL); Methadone Urine VISTA NEGATIVE (< 300 ng/mL); PCP Urine VISTA NEGATIVE (< 25 ng/mL); THC Urine VISTA POSITIVE (< 50 ng/mL)
--- NOTE | 2022-08-31 23:37 | ED.RN ---
CRISIS CALLED AT 2337 TO INITIATE EVALUATION
--- NOTE | 2022-09-01 04:24 | ED.RN ---
PENDING WITH ABHIJEET POON & JULIAN SWIFT
[2022-09-01 08:17] VITALS: BP 108/50; PULSE 62; O2SAT 100
== END 2022-09-01 09:46 ==
LOC: ED 22:31
PROVIDERS: Emergency Provider Emergency Medicine; Visit Provider Emergency Medicine
DX: R45.850 Homicidal ideations (principal); F20.9 Schizophrenia, unspecified; F17.210 Nicotine dependence, cigarettes, uncomplicated; Z20.822 Contact with and (suspected) exposure to COVID-19; Z79.899 Other long term (current) drug therapy
CPT/HCPCS: 80048; 80307; 82077; 85025; 87811; 99283

== ENCOUNTER 2023-05-05 11:55 | Emergency (ER) | payer MEDICAID, SELFPAY ==
[2023-05-05 11:55] VITALS: BP 128/95; PULSE 85; RESP 18; TEMP 36.3; O2SAT 98; BMI 26.6
--- NOTE | 2023-05-05 12:14 | EDS_ITS ---
HPI History of Present Illness Chief Complaint: Eye Problem Narrative Narrative: 23-year-old male with right eye irritation and left eye irritation. Patient states the left eye started first and has been irritated. He states at this point he feels like he might have a foreign body in it but initially it was just itchy. He has been rubbing the left eye. And now it feels that he has a foreign body. Patient denies any visual differences. Patient is a noncontact wearer. Patient denies any significant medical history. [facility] Medical History Methamphetamine abuse Schizophrenia Home Medications perphenazine 8 mg tablet 8 mg PO QHS 08/31/22 [History Last Taken 08/30/22] erythromycin 5 mg/gram (0.5 %) eye ointment 1 applic LEFT EYE Q6H #3.5 grams 05/05/23 [Rx Last Taken Unknown] fluphenazine decanoate 25 mg/mL injection solution 25 mg subcut QMONTH 05/05/23 [History Last Taken Unknown] ketorolac 0.5 % eye drops 1 drp LEFT EYE Q8H PRN pain #10 mL 05/05/23 [Rx Last Taken Unknown] Allergy/AdvReac Type Severity Reaction Status Date / Time No Known Allergies Allergy Verified 05/05/23 11:56 Social History Smoking Status: Current every day smoker tobacco type: cigarettes ROS ROS ED Constitutional Constitutional ED: Denies chills, fever(s) or sweats Eyes Eyes: Reports other Details: Bilateral eye irritation ; Denies blurry vision or change in vision ENT ENT ED: Denies ear pain or sore throat Cardiovascular Cardiovascular: Denies chest pain, palpitations or racing heartbeat Respiratory/Chest Respiratory/Chest: Denies cough, dyspnea or sputum Gastrointestinal Gastrointestinal: Denies abdominal pain, constipation, diarrhea, nausea or vomiting Genitourinary Genitourinary ED: Denies dysuria, hematuria or urinary frequency Musculoskeletal Musculoskeletal: Denies arthralgias, myalgias or neck pain Integumentary Denies abscess, Abrasions or rash Neurologic Neurologic: Denies headache(s), paresthesias or weakness Psychiatric Psychiatric: Denies anxiety, depression, suicidal ideation or suicidal thoughts Endocrine Endocrinology: Denies polydipsia or polyuria EXAM Physical Exam Const Vital Signs: 05/05/23 11:55 Temperature 97.4 F L Temperature Source Temporal Pulse Rate 85 Respiratory Rate 18 Blood Pressure 128/95 H Blood Pressure Mean 106 Pulse Ox 98 Oxygen Delivery Method Room Air Positive well nourished General Appearance ED: NAD HEENT atraumatic and trauma Eyes PERRL and EOMs intact bilaterally General Eye ED: Yes normal light reflex Visual Field: No peripheral vision loss and No central vision loss Alignment: alignment normal Eyelid: eyelids normal Conjunctiva: conjunctiva abnormal left Details: injection Sclera: sclera abnormal Positive for left (Injection) Cornea: cornea abnormal Positive for left Cornea - Left Eye: Positive for abrasion Details: Positive for at clock position (12 o'clock position circular corneal abrasion); Negative for dendrites present Pupil: PERRL Neck no lymphadenopathy Resp normal respiratory effort and no retractions Cardio regular rate and regular rhythm Neuro oriented x3 and CN's II-XII intact bilaterally Sensorium / Orientation: alert Motor Exam: strength 5/5 throughout Skin no wounds MDM MDM MDM Narrative Medical decision making narrative: Patient presenting with eye irritation and. He is concerned for foreign body but it sounds as if his eye was irritated and he rubbed his eyes and now has foreign body sensation. On examination he has a corneal abrasion at the 12 o'clock position. Visual acuities 20/20 OD, 20/40 OS. Patient given erythromycin ophthalmic instructions to take this 4 times a day. He also was given ketorolac eyedrops for pain. Follow-up with Dr. Harrington as an outpatient. Return precautions discussed. Impression: 1. Corneal abrasion left eye Discharge Plan Triage Chief Complaint: Eye Problem ED Provider: Andrews Green Dx/Rx/DC Orders Instructions: ED Corneal Abrasion Prescriptions: New erythromycin 5 mg/gram (0.5 %) ointment 1 applic LEFT EYE Q6H Qty: 3.5 0RF ketorolac 0.5 % drops 1 drp LEFT EYE Q8H PRN (Reason: pain) Qty: 10 0RF Rx Instructions: begin 24 hours prior to surgery No Action perphenazine 8 mg Tablet 8 mg PO QHS fluphenazine decanoate 25 mg/mL solution 25 mg subcut QMONTH Primary Care Provider: Care Physician,No Primary Referrals: Ollie Harrington MD [Med Staff - Active Staff] - 3-5 Days Care Physician,No Primary [Primary Care Provider] - Disposition Disposition: Home, Self Care
[2023-05-05] MEDS: Fluorescein 1 MG STRIP 1 STRIP RIGHT EYE (12:17)
[2023-05-05] MEDS: Tetracaine 0.5% Ophthalmic Bottle 1 DRP LEFT EYE (12:25)
--- NOTE | 2023-05-05 13:09 | CM.ED ---
Social Work Note Referral Source: case find Referral Reason: no PCP SW met with patient and introduced herself and role as [facility] [employer]. Patient lying on hospital bed and agreeable to speak with SW. SW inquired about patient's insurance and current PCP. Patient verified insurance and reports no current PCP. SW provided patient with a list of local PCPs in network with patient's insurance and accepting new patients. Patient was receptive towards list and voiced no other needs. SW remains available if needs arise. Janae Tello MSW, [id number]
[2023-05-05 13:32] VITALS: BP 121/90; PULSE 63; RESP 18; O2SAT 100
[2023-05-05] MEDS: Erythromycin Base 1 OPTH.TUBE 1 APPLIC EACH EYE (13:32)
== END 2023-05-05 13:38 | disposition home or self-care (01) ==
PROVIDERS: Emergency Provider Student in an Organized Health Care Education/Training Program; Visit Provider Student in an Organized Health Care Education/Training Program
DX: S05.02XA Injury of conjunctiva and corneal abrasion without foreign body, left eye, initial encounter (principal); F17.210 Nicotine dependence, cigarettes, uncomplicated; X58.XXXA Exposure to other specified factors, initial encounter
CPT/HCPCS: 99283